=== PATIENT | female | born 1935 | race Caucasian/White ===

== ENCOUNTER 2018-04-25 11:55 | Emergency (ER) | payer MEDICARE, MEDICAID ==
[2018-04-25 12:26] VITALS: BP 149/64
--- NOTE | 2018-04-25 13:22 | UC ---
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 Onset/Duration: Sudden Onset, Lasting Days - 7, Still Present, Worse Since - past 2 days Timing: Constant Onset Severity: Moderate Current Severity: Severe Pain Intensity: 9 Pain Scale Used: 0-10 Numeric Location: Discrete - bilateral flank area Character: Swelling, Pruritus, Pain, Redness, Raised, Painful Aggravating Factor(s): Touch Alleviating Factor(s): Nothing Associated Signs & Symptoms: Positive: Tenderness - Allergy/Home Medications Allergies/Adverse Reactions: Allergies Allergy/AdvReac Type Severity Reaction Status Date / Time codeine Allergy Unknown headache, Verified 04/25/18 12:11 n/v Home Medications: Home Medications Acetaminophen [Acetaminophen Extra Strength] 500 mg PO PRN 04/25/18 [History] Albuterol HFA INHALER* [Ventolin HFA Inhaler*] 2 puff INH Q4H PRN 04/25/18 [ History Confirmed 04/25/18] Fluticasone/Umeclidin/Vilanter [Trelegy Ellipta 100-62.5-25 Mcg/INH] 1 aer IN DAILY 04/25/18 [History Confirmed 04/25/18] Naproxen Sodium [Aleve] 220 mg PO PRN 04/25/18 [History] PMH/Surg Hx/FS Hx/Imm Hx Respiratory History: COPD - Surgical History Surgical History: Yes Surgery Procedure, Year, and Place: RIGHT WRIST FRACTURE REPAIR. VEIN REMOVAL - Family History Known Family History: Negative: Diabetes - Social History Alcohol Use: Rare Substance Use Type: None Smoking Status (MU): Former Smoker When Did the Patient Quit Smoking/Using Tobacco: 1981 Review of Systems All Other Systems Reviewed And Are Negative: Yes Constitutional: Positive: Negative Skin: Positive: Rash - left flank / periorbital area ENT: Positive: Negative Respiratory: Positive: Shortness Of Breath, Cough Cardiovascular: Positive: Chest Pain Is Patient Immunocompromised?: No Physical Exam Triage Information Reviewed: Yes Appearance: Well-Appearing, No Pain Distress, Well-Nourished Vital Signs: Initial Vital Signs Temp 98.4 F 04/25/18 12:15 Pulse 84 04/25/18 12:15 Resp 22 04/25/18 12:15 BP 149/64 04/25/18 12:15 Pulse Ox 98 04/25/18 12:15 Vital Signs Reviewed: Yes Eye Exam: Normal Eyes: Positive: Conjunctiva Clear ENT: Positive: Normal ENT inspection, Hearing grossly normal, Pharynx normal Neck: Positive: Supple, Nontender, No Lymphadenopathy Respiratory: Positive: Chest non-tender, Lungs clear, Normal breath sounds Cardiovascular: Positive: RRR, No Murmur, Pulses Normal Skin: Positive: Rashes - 1. vesicular rash left flank cw shingles 2. macular rash both periorbital area Diagnostics - EKG Cardiac Rate: NL Cardiac Rhythm: Sinus: Normal Ectopy: None ST Segment: Normal Course/Dx - Diagnoses Provider Diagnosis: Shingles, Periorbital dermatitis Discharge - Sign-Out/Discharge Documenting (check all that apply): Patient Departure All imaging exams completed and their final reports reviewed: No Studies - Discharge Plan Condition: Stable Disposition: HOME Prescriptions: Ondansetron ODT TAB* [Zofran 4 MG Odt TAB*] 8 mg PO Q8H PRN #6 tab.odt PRN Reason: Nausea/Vomiting Sulfacet/PredNISolone OPTH.OI* [Blephamide S.O.P.*] 1 applic BOTH EYES BEDTIME # 1 tube ValACYclovir (*) [Valtrex 1 GM(*)] 1 gm PO TID #21 tab Patient Education Materials: Shingles (ED), Eczema (ED) - Billing Disposition and Condition Condition: STABLE Disposition: Home
== END 2018-04-25 13:11 | disposition home or self-care (01) ==
LOC: UCCORT 11:55
DX: L30.9 Dermatitis, unspecified (principal); B02.9 Zoster without complications; Z88.5 Allergy status to narcotic agent; J44.9 Chronic obstructive pulmonary disease, unspecified; Z87.891 Personal history of nicotine dependence
CPT/HCPCS: 93005; 99202; G0463